=== PATIENT | male | born 1980 | race Caucasian/White ===

== ENCOUNTER 2017-01-29 01:46 | Inpatient (IN) | payer OTHER ==
--- NOTE | ~2017-01-29 | CO ---
Unit #: [id number] #: [id number] Patient: DELLA BLAIR JR [id number] [place] [address] [id number] MR#: [id number] NAME: DELLA BLAIR JR ROOM: P206 Age: 36 Sex: M Admission Date: 01/29/2017 : 1980 Attending Physician: Steve Acosta M.D. Primary Care Physician: [facility]. Consultation Date: 01/29/2017 CONSULTATION REPORT HISTORY OF PRESENT ILLNESS Della has a history of type 2 diabetes that is controlled by Levemir and Humalog. He reports taking 40 units of Levemir at night and sliding scale Humalog during the day. He last used his insulin yesterday. He is unsure of his most recent hemoglobin A1c. He also reports having an I and D of an abscess containing MRSA 1-1/2 months ago. Since then, he has continued to keep the wound clean and dry and applies dressings daily. He is not sure when he has to follow up with his surgeon. No other complaints. PHYSICAL EXAMINATION CARDIAC: Regular rate and rhythm. No murmur, gallop, or rub. RESPIRATORY: Clear to auscultation bilaterally. SKIN: Healing wound on left chest with quite a bit of scar tissue surrounding. ASSESSMENT AND PLAN 1. Type 2 diabetes. We will begin Levemir 20 units subcu q.h.s. and sliding scale Humalog with Accu-Cheks with meals. 2. Wound, left chest. Please keep clean and dry and apply nonocclusive dressing if needed for comfort. Dictated by... Fredo Grijalva/rosa maria TD: 01/29/2017 17:08 JOB #: [id number] CONSULTATION REPORT Page 1 of 1 X TEVIN BRISCOE APRN X CONSULTATION REPORT
--- NOTE | ~2017-01-29 | DS ---
Unit #: [id number] #: [id number] Patient: DELLA BLAIR JR [id number] [place] [address] [id number] MR#: [id number] NAME: DELLA BLAIR JR ROOM: P207 Age: 36 Sex: M Admission Date: 01/29/2017 : 1980 Discharge Date: 01/31/2017 Attending Physician: Steve Acosta M.D. Primary Care Physician: [facility] DISCHARGE SUMMARY REASON FOR ADMISSION Della is a 36-year-old man with a history of polysubstance dependence. He came in reporting increasing heroin use with the use of alcohol. He had no suicidal ideation, intent, or plan and was admitted for detox. DIAGNOSTIC STUDIES LABORATORY RESULTS: CMP demonstrated a high random glucose of 278, high AST 43, high ALT 53, high alkaline phosphatase 125. RPR was nonreactive. CBC demonstrated a low hemoglobin 12.6, low hematocrit 37.9, high RDW 16.7, and low platelets 107. Fingerstick glucoses ranged up to 414. HOSPITAL COURSE The patient was admitted and placed on the opioid detox protocol with the addition of Ativan for benzodiazepine withdrawal. He was seen by our medical van driver and diabetes management was initiated. The following day, the patient said he had minimal detox symptomatology and wished to leave the hospital, and despite the brevity of his hospitalization, he was not eligible for involuntary treatment and therefore was granted his discharge at his request. DISCHARGE DIAGNOSES AXIS I: Opioid dependence withdrawal, uncomplicated, F11.23; alcohol dependence. AXIS II: No diagnosis. AXIS III: Type 2 diabetes, hepatitis C. AXIS IV: AXIS V: DISCHARGE INSTRUCTIONS Follow up with primary care physician and with chemical dependence programming as determined by the patient in consultation with his unit criminal justice social worker. DISCHARGE MEDICATIONS No prescriptions were provided. The patient was to continue on Levemir 20 units at bedtime for diabetes, NovoLog 10 units before meals for diabetes, and NovoLog sliding scale based on blood sugar readings. CONDITION AT DISCHARGE Fair. Unit #: [id number] #: [id number] Patient: DELLA BLAIR JR PROGNOSIS Fair. DIET AND ACTIVITY Per primary care doctor. Dictated by... Steve Acosta M.D. [facility]/modl TD: 02/03/2017 01:13 JOB #: [id number] DISCHARGE SUMMARY Page 1 of 1 X Steve Acosta MD DISCHARGE SUMMARY
--- NOTE | ~2017-01-29 | EKG ---
PATIENT: DELLA BLAIR UNIT #: [id number] Ventricular Rate: 51 BPM Atrial Rate: 51 BPM P-R Interval: 148 ms QRS Duration: 102 ms Q-T Interval: 444 ms QTC Calculation(Bezet): 409 ms P [facility]: 41 degrees Calculated R [facility]: -8 degrees Calculated T [facility]: 12 degrees Diagnosis Line: Sinus bradycardia Diagnosis Line: Otherwise normal ECG Diagnosis Line: Diagnosis Line: Confirmed by SAMANTHA YOUNG MD ([id number]) on 01/31/2017 Diagnosis Line: 10:55:23 PM INTERPRETING MD: HANNAH FOX
--- NOTE | ~2017-01-29 | PA ---
Unit #: [id number] #: [id number] Patient: DELLA BLAIR JR [id number] [place] [address] [id number] MR#: [id number] NAME: DELLA BLAIR JR ROOM: P207 Age: 36 Sex: M Admission Date: 01/29/2017 : 1980 Date of Assessment: 01/30/2017 Attending Physician: Steve Acosta M.D. Admitting Physician: Steve Acosta M.D. Primary Care Physician: [facility] PSYCHIATRIC ASSESSMENT DATE OF SERVICE 01/30/2017. INFORMANTS The patient, reliable; OLOP, reliable. CHIEF COMPLAINT Detox. HISTORY OF PRESENT ILLNESS Della is a 36-year-old man who reports he has been using a gram of IV heroin, and drinks a couple of pints of alcohol daily. He had no suicidal ideation, intent, or plan and was admitted for polysubstance detox. PAST PSYCHIATRIC HISTORY The patient has been at [facility] and [facility] in the past. He has no other psychiatric plan or medications. FAMILY PSYCHIATRIC HISTORY The patient's father was an alcoholic. SOCIAL HISTORY The patient is an eleventh-grade graduate, who is unemployed and currently living with his mother after his father's 2 months ago. PAST MEDICAL HISTORY Significant for type 1 diabetes and hepatitis C. MEDICATIONS Humalog insulin, Levemir insulin. ALLERGIES Codeine. SUBSTANCE USE HISTORY As noted above. MENTAL STATUS EXAMINATION Della presented as a disheveled man, appearing his stated age. He stood 5 feet 11 inches tall, weighed 175 pounds. Vital signs were temperature 98.0, pulse 58, respirations 18, and blood pressure 156/87. His speech was soft, but easily understood. His musculoskeletal examination demonstrated mild agitation. His mood was irritable with a congruent Unit #: [id number] #: [id number] Patient: DELLA BLAIR JR affect. He was alert and fully oriented. His memory and concentration were intact. His thought processes were logical with no psychosis. He denied suicidal ideation, intent, or plan. Insight and judgment, fair. Fund of knowledge and abstraction, fair. ASSETS AND LIABILITIES The patient knows local resources and has supportive family. Liabilities include difficulty maintaining sobriety and chronic medical conditions. ADMITTING DIAGNOSES AXIS I: Opioid dependence with withdrawal, uncomplicated, F11.230. AXIS II: No diagnosis. AXIS III: Type 2 diabetes, hepatitis C, recent debridement of chest wound. AXIS IV: AXIS V: PSYCHIATRIC PLAN The patient was admitted and placed on the opioid detox protocol. A physical examination and laboratory studies will be conducted as well as a medical consultation for diabetes and wound management. He will enroll in dual diagnosis groups and activities. Treatment goals are resolution of intoxication, improvement in insight, and improvement in coping skills. DISCHARGE PLANNING Follow up with [facility] and [facility]. ESTIMATED LENGTH OF STAY 5 days. Dictated by... Steve Acosta M.D. VERENICE/rosa maria TD: 02/02/2017 22:18 JOB #: [id number] PSYCHIATRIC ASSESSMENT Page 1 of 1 X Steve Acosta MD X PSYCHIATRIC ASSESSMENT
--- NOTE | ~2017-01-29 | HP ---
Unit #: [id number] #: [id number] Patient: DELLA BLAIR JR [id number] [place] [address] [id number] MR#: [id number] NAME: DELLA BLAIR JR ROOM: P206 Age: 36 Sex: M Admission Date: 01/29/2017 : 1980 Attending Physician: Steve Acosta M.D. Admitting Physician: Steve Acosta M.D. Primary Care Physician: [facility] HISTORY AND PHYSICAL HISTORY OF PRESENT ILLNESS Della is a 36-year-old male admitted on 01/29/[address] [place] [address] for detox from alcohol. PAST MEDICAL HISTORY 1. Type 2 diabetes. 2. Hepatitis C. PAST SURGICAL HISTORY I and D. ALLERGIES Codeine. SOCIAL HISTORY Smokes 1 pack of cigarettes daily. Binge alcohol use and daily heroin use. He is currently single and living with his mother. FAMILY HISTORY Noncontributory. REVIEW OF SYSTEMS CONSTITUTIONAL: No fever or chills. HEENT: Denies any sore throat, ear pain or runny nose. CARDIOVASCULAR: Denies chest pain, irregular heart rhythm or palpitations. CHEST: Denies shortness of breath or cough. No hemoptysis. GASTROINTESTINAL: Denies nausea, vomiting, diarrhea or chronic constipation. ENDOCRINE: Denies history of increased thirst or urination. No recent significant weight loss or gain. GENITOURINARY: Denies dysuria, frequency, or hematuria. SKIN: Denies any rashes. HEMATOLOGIC: Denies history of increased bleeding or bruising. MUSCULOSKELETAL: Denies any hot, swollen joints. No generalized muscle pain. NEUROLOGIC: Denies problems with vision or speech. No frequent, severe headaches. No numbness, tingling or weakness in any extremities. Denies loss of bladder or bowel control. CURRENT MEDICATIONS 1. Humalog. 2. Levemir. Unit #: [id number] #: [id number] Patient: DELLA BLAIR JR PHYSICAL EXAMINATION GENERAL: Alert, oriented, in no acute distress. VITAL SIGNS: Blood pressure 173/109, heart rate 92, temperature 98.6. HEIGHT: 5 feet 11. WEIGHT: 175 pounds. SKIN: Wound on left chest. HEENT: Normocephalic. TMs not viewed. Oral and nasal passages clear. Conjunctivae clear. PERRLA. EOMs intact. NECK: Supple without lymphadenopathy or thyromegaly. HEART: Regular rate and rhythm without murmur. LUNGS: Clear. ABDOMEN: Soft, nontender, without masses or hepatosplenomegaly. : Not done. EXTREMITIES: No evidence of cyanosis, clubbing or edema. Moves all without focal deficit. NEUROLOGICAL: Grossly within normal limits. Cranial Nerves: II: Visual manuel are intact. III, IV AND : Extraocular movements are intact. Pupils are equal, round and reactive to light. V: Facial sensation is grossly normal. VII: Facial movements and expression are normal. VIII: Auditory acuity grossly intact. IX, X: Uvula is midline. Phonation is normal. XI: Patient shrugs shoulders and turns head normally. XII: Tongue protrudes in the midline. Sensory and Motor Function: Sensory and motor sensation is grossly normal. Motor: moves all extremities well. Coordination: Gait is normal. Deep Tendon Reflexes: Intact. IMPRESSION 1. Psychiatric admission. 2. Type 2 diabetes. 3. Hepatitis C. 4. Wound to the left chest. RECOMMENDATIONS PSYCHIATRIC: Per psychiatrist. MEDICAL: No contraindications to participate in facility's activities. MEDICAL PROGNOSIS Good. MEDICAL CONDITION Stable. Dictated by... Blayne GrijalvaPBeckieRKieran SAMAYOA/patrick TD: 01/29/2017 18:54 JOB #: [id number] Unit #: [id number] #: [id number] Patient: DELLA BLAIR JR HISTORY AND PHYSICAL Page 1 of 1 X TEVIN BRISCOE APRN HISTORY AND PHYSICAL
[~2017-01-29 01:46] MED LIST: ACETAMINOPHEN PO; ACETAMINOPHEN650 M4 PO; ALBUTEROL17 G1 IH; AMOXICILLIN500 M1 PO; ANTIVERT PO; ANTIVERT12.5 MG PO; ASPIRIN81 M1 PO; CUBICIN IV; ELIMITE60 GM TOP; FLEXERIL10 MG PO; HUMALOG100 U/ML; HYDROCODON-ACE1 EAC5 PO; IBUPROFEN PO; KEFLEX PO; KEFLEX500 MG PO; KETOPROFEN PO; LEVEMIR SUBQ; LEVEMIR100 UNITS/ SUBQ; LISINOPRIL PO; LISINOPRIL-HCTZ1 T19 PO; LORTAB 10-5001 EACH; LORTAB 10-5001 EACH PO; LORTAB 7.51 TAB 7.5/ PO; LORTAB 7.51 TAB PO; MEDROL4 MG/DOSE- PO; MOTRIN600 MG PO; NEURONTIN100 MG PO; NO MEDICATIONS; NORCO 10-325 TA1 TAB PO; NORVASC PO; PHENERGAN PO; PREVACID PO; VICODIN 5/500 T1 TAB PO; ZESTRIL10 MG PO
[2017-01-31 12:21] LABS: BASOPHIL% 0.4 % (0-2.5); EOSINOPHIL# 0.1 X10e3 (0-0.7); EOSINOPHIL% 0.6 % (0.0-7.0); HEMATOCRIT 37.9 % (38.0-50.0); HEMOGLOBIN 12.6 gm/dL (13.0-16.0); LYMPHOCYTE# 1.6 X10e3 (1.0-3.5); LYMPHOCYTE% 19.2 % (17.0-45.0); MEAN CELL VOLUME 90.8 FL (83-96); MEAN CORPUSCULAR HEMOGLOBIN 30.2 PG (28-34); MEAN CORPUSCULAR HGB CONC 33.2 g/dL (30-36); MEAN PLATELET VOLUME 8.4 FL (6.5-11.5); MONOCYTE# 0.5 X10e3 (0-1.0); MONOCYTE% 6.3 % (3.0-12.0); NEUTROPHIL# 5.9 X10e3 (1.5-7.1); NEUTROPHIL% 73.5 % (40-75); PLATELET COUNT 107 X10e3 (140-420); RED BLOOD COUNT 4.18 X10e (3.90-5.60); RED CELL DISTRIBUTION WIDTH 16.7 % (11.0-15.5); WHITE BLOOD COUNT 8.1 X10e3 (4.0-10.5)
[2017-01-31 12:26] LABS: DIFF IND NO
[2017-01-31 12:39] LABS: ALBUMIN SERUM 3.3 g/dL (3.5-5.0); BILIRUBIN,TOTAL 0.5 mg/dL (0.2-2.0); BUN/CREATININE RATIO 15.71; CALCIUM SERUM 9.1 mg/dL (8.4-10.2); CREATININE SERUM 0.7 mg/dL (0.6-1.4); GLOM FILT RATE Estimated 123.2 mL/min (>60); POTASSIUM 3.7 mmol/L (3.5-5.1); PROTEIN TOTAL SERUM 7.3 g/dL (6.0-8.3)
== END 2017-01-31 18:23 | DRG 897 ==
LOC: P2S 01:46
PROVIDERS: Psychiatry & Neurology Psychiatry
PROC: HZ2ZZZZ Detoxification Services for Substance Abuse Treatment (ICD-10-PCS; principal; 2017-01-29)
DX: F11.23 Opioid dependence with withdrawal (principal); F10.20 Alcohol dependence, uncomplicated; B19.20 Unspecified viral hepatitis C without hepatic coma; Z56.0 Unemployment, unspecified; Z88.5 Allergy status to narcotic agent; E11.9 Type 2 diabetes mellitus without complications; F17.210 Nicotine dependence, cigarettes, uncomplicated; S21.102D Unspecified open wound of left front wall of thorax without penetration into thoracic cavity, subsequent encounter
CPT/HCPCS: 80053; 82947; 85025; 86592; 93005